=== PATIENT | female | born 1995 | race Caucasian/White ===

== ENCOUNTER 2020-04-15 16:54 | Emergency (ER) | payer SELFPAY ==
--- NOTE | 2020-04-15 17:04 | NUR ---
PT TAKEN BACK TO BED 5 TO TRIAGE AT BEDSIDE AND PT IMMEDIATELY LEFT STATES "I SUDDENLY BECAME REALLY PARANOID. I'M GOING TO ANOTHER HOSPITAL." PT STATES SHE IS NERVOUS TO BE AROUND CORONAVIRUS AND LEFT FACILITY.
== END 2020-04-15 17:04 | disposition left against medical advice (07) ==
LOC: MED 16:54
DX: Z53.21 Procedure and treatment not carried out due to patient leaving prior to being seen by health care provider (principal)